=== PATIENT | female | born 1950 | race Caucasian/White ===

== ENCOUNTER → 2017-03-09 | Outpatient (CLI) | payer OTHER | END | disposition home or self-care (01) | LOC: RAH 13:16 | PROVIDERS: ATTEND Physical Medicine & Rehabilitation | DX: M25.571 Pain in right ankle and joints of right foot (principal) | CPT/HCPCS: 73600 ==

== ENCOUNTER → 2018-05-26 | Outpatient (CLI) | payer OTHER ==
[~2018-05-26] VITALS: Ht 157.5 cm; Wt 74.4 kg
[~2018-05-26] MED LIST: REGADENOSON 0.4 MG/5 ML PF SYG IVP SCH
== END | disposition home or self-care (01) ==
LOC: SHCH 10:03
PROVIDERS: ATTEND Internal Medicine Cardiovascular Disease
DX: I25.2 Old myocardial infarction (principal); I10 Essential (primary) hypertension; J44.9 Chronic obstructive pulmonary disease, unspecified
CPT/HCPCS: 78452; 93017; 96374; A9500 ×2; J2785

== ENCOUNTER → 2018-05-27 | Outpatient (CLI) | payer OTHER ==
[~2018-05-27] MED LIST changes: +AMLO10TA7 PO; +CHOL200013 PO; +ESCI20TA PO; +FLUT1BLS IH; +GABA-531 PO; +IBUP-2076 PO; +METO25TA6 PO; +OMEP20CA10 PO; -REGADENOSON 0.4 MG/5 ML PF SYG IVP SCH
== END | disposition home or self-care (01) ==
LOC: SHCH 08:46
PROVIDERS: ATTEND Internal Medicine Cardiovascular Disease
DX: I08.0 Rheumatic disorders of both mitral and aortic valves (principal); I10 Essential (primary) hypertension
CPT/HCPCS: 93306

== ENCOUNTER 2018-06-16 06:52 | Day surgery (SDC) | payer OTHER ==
[2018-06-14 13:01] VITALS: BP 150/72
[2018-06-14 13:04] LABS: APPEARANCE,URINE Clear (CLEAR); BILIRUBIN,URINE Negative (NEGATIVE); COLOR,URINE Yellow (YELLOW); GLUCOSE, URINE (UA) Negative (NEGATIVE); KETONES,URINE Negative (NEGATIVE); LEUKOCYTE ESTERASE ,URINE Trace (NEGATIVE); NITRATE,URINE Negative (NEGATIVE); OCCULT BLOOD,URINE Negative (NEGATIVE); PROTEIN,URINE Negative (NEGATIVE)
[2018-06-14 13:05] LABS: BASOPHILS % (AUTO) 0.1 % (0.0-5.0); HEMATOCRIT 42.4 % (36-48); LYMPHOCYTES % (AUTO) 31.7 % (21.0-51.0); MEAN CORPUSCULAR HEMOGLOBIN 31.4 pg (27.0-33.0); MEAN CORPUSCULAR HGB CONC 33.5 g/dL (32.0-36.0); MEAN CORPUSCULAR VOLUME 93.7 fL (79-99); MONOCYTES % (AUTO) 7.9 % (3.0-13.0); NEUTROPHILS % (AUTO) 58.3 % (40.0-77.0); PLATELET COUNT (AUTO) 213 K/uL (130-400); RED BLOOD CELL COUNT(AUTO) 4.53 MIL/uL (4.00-5.50); RED CELL DISTRIBUTION WIDTH 13.3 % (11.0-15.5); WHITE BLOOD COUNT (AUTO) 8.4 K/uL (4.8-10.8)
[2018-06-14 13:13] LABS: CREATININE 0.6 mg/dL (0.5-1.5); POTASSIUM 4.3 mmol/L (3.5-5.1)
[2018-06-14 13:14] LABS: BACTERIA,URINE Few /HPF (None Seen); MUCUS,URINE Few LPF (None Seen); RBC,URINE None Seen /HPF (0-1); SQUAMOUS EPITHELIAL CELL,UR Few /HPF (0-2); WBC,URINE 0-1 /HPF (0-1)
[2018-06-14 13:15] LABS: INR 0.98 (0.85-1.15); PARTIAL THROMBOPLASTIN TIME 28.7 SEC (26.3-35.5); PROTHROMBIN TIME 10.3 SEC (9.6-11.6)
--- NOTE | 2018-06-15 14:51 | NUR ---
REPORTED UA , FEW BACTERIA, FEW SQUAM EPI, AND FEW MUCUS. NO NEW ORDERS.
[~2018-06-16] VITALS: Ht 157.5 cm; Wt 79.7 kg
[2018-06-16] VITALS (21 sets, daily range): BP systolic 119–153; BP diastolic 34–71
[2018-06-16] MEDS ORDERED: SODIUM CHLORIDE 0.9% 1000ML 1,000 ML IV SCH (08:00)
[2018-06-16] MEDS ORDERED: LIDOCAINE HCL 2% 20ML ONE (08:24)
[2018-06-16] MEDS ORDERED: HEPARIN SODIUM 1000UNIT/ML 10ML VIAL ONE (08:24)
[2018-06-16] MEDS ORDERED: IOHEXOL 350 MG/ML 100ML INFUS..BTL IV ONE (08:24)
[2018-06-16] MEDS ORDERED: IOHEXOL-350 50ML VIAL IV ONE (08:24)
--- NOTE | 2018-06-16 08:25 | NUR ---
TO DIRECTOR OF DIAGNOSTIC IMAGING PT TAKEN TO DIRECTOR OF DIAGNOSTIC IMAGING VIA BED BY COLETTE FERRER. PT STABLE.
[2018-06-16] MEDS ORDERED: ATROPINE SULFATE 0.1 MG/ML 10 ML SYG IVP ONE (09:11)
[2018-06-16] MEDS ORDERED: SODIUM CHLORIDE 0.9% 10 ML VIAL IVP SCH (09:15)
--- NOTE | 2018-06-16 09:20 | NUR ---
RECEIVE PT RECEIVED FROM [employer] VIA BED AWAKE ALERT ORIENTED X3. STABLE. NOT IN ANY APPARENT DISTRESS. CATH SITE TO RIGHT GROIN SOFT, DRESSING DRY AND INTACT, NO OOZING NO HEMATOMA NOTED. INSTRUCTED TO KEEP RIGHT LEG STRAIGHT AND NOT TO ELEVATE HEAD. VERBALIZED UNDERSTANDING.
--- NOTE | 2018-06-16 16:15 | NUR ---
ACTIVITY PT ASSISTED TO BATHROOM, AMBULATED WITHOUT ANY PROBLEMS, VOIDED X1. CATH SITE REMAINS SOFT, NO OOZING NO HEMATOMA NOTED. DRESSING DRY AND CLEAN.
== END 2018-06-16 16:30 | disposition home or self-care (01) ==
LOC: DAH 06:52
PROVIDERS: ATTEND Internal Medicine Cardiovascular Disease
DX: I20.9 Angina pectoris, unspecified (principal); Z79.01 Long term (current) use of anticoagulants
CPT/HCPCS: 36415; 71045; 80048; 81001; 85025; 85610; 85730; 93005; 93458; C1894; J1644 ×2; J3490; J7030; Q9965; Q9967 ×2; J0461

== ENCOUNTER 2018-08-19 10:30 | Inpatient (IN) | payer OTHER ==
[~2018-08-19] VITALS: Ht 157.5 cm; Wt 83.5 kg
[~2018-08-19 10:30] MED LIST changes: -FLUT1BLS IH; +OMEP-50 PO; -OMEP20CA10 PO
[2018-08-19 11:16] LABS: BASOPHILS % (AUTO) 0.8 % (0.0-5.0); EOSINOPHILS % (AUTO) 4.2 % (0.0-8.0); HEMATOCRIT 38.8 % (36-48); LYMPHOCYTES % (AUTO) 31.9 % (21.0-51.0); MEAN CORPUSCULAR HEMOGLOBIN 31.9 pg (27.0-33.0); MEAN CORPUSCULAR HGB CONC 34.1 g/dL (32.0-36.0); MEAN CORPUSCULAR VOLUME 93.6 fL (79-99); MONOCYTES % (AUTO) 6.9 % (3.0-13.0); NEUTROPHILS % (AUTO) 56.2 % (40.0-77.0); PLATELET COUNT (AUTO) 190 K/uL (130-400); RED BLOOD CELL COUNT(AUTO) 4.14 MIL/uL (4.00-5.50); RED CELL DISTRIBUTION WIDTH 13.1 % (11.0-15.5); WHITE BLOOD COUNT (AUTO) 7.6 K/uL (4.8-10.8)
[2018-08-19 11:25] LABS: CREATININE 0.7 mg/dL (0.5-1.5); POTASSIUM 3.9 mmol/L (3.5-5.1)
[2018-08-19 11:42] LABS: INR 0.98 (0.85-1.15); PROTHROMBIN TIME 10.3 SEC (9.6-11.6)
[2018-08-19 11:52] VITALS: BP 133/68
[2018-08-19] MEDS ORDERED: HYDR12.54 PO (13:07)
[2018-08-19] MEDS ORDERED: TIZA2TAB5 PO (13:07)
[2018-08-19] MEDS ORDERED: FLUT15.88 NS (13:07)
[2018-08-19] MEDS ORDERED: LACTATED RINGERS 1000ML 1,000 ML IV SCH (13:30)
[2018-08-19] MEDS ORDERED: CEFAZOLIN SODIUM 1 GM VIAL IVP SCH (13:30)
[2018-08-25] VITALS (24 sets, daily range): BP systolic 118–153; BP diastolic 48–66
[2018-08-25] MEDS ORDERED: TRANEXAMIC ACID 1000MG/10ML IV ONE (08:37)
[2018-08-25] MEDS ORDERED: VANCOMYCIN HCL 1 GM VIAL ONE (08:37)
[2018-08-25] MEDS ORDERED: PROPOFOL 10 MG/ML 20ML VIAL IV ONE (08:41)
[2018-08-25] MEDS ORDERED: LIDOCAINE PF 2% 5ML ABBOJECT ONE ×2 (08:41→10:58)
[2018-08-25] MEDS ORDERED: ROPIVACAINE 0.5% 5MG/ML 30ML IJ ONE ×2 (08:41→08:47)
[2018-08-25] MEDS ORDERED: ROCURONIUM 10MG/1ML SYR 10 MG/ML ML ONE (08:41)
[2018-08-25] MEDS ORDERED: MIDAZOLAM HCL 1 MG/ML 2ML VIAL ONE (08:41)
[2018-08-25] MEDS ORDERED: FENTANYL CITRATE PF 50 MCG/1 ML 2ML VIAL ONE (08:43)
--- NOTE | 2018-08-25 08:45 | NUR ---
PREP surgical area prepped with 2% chlorhexidine gluconate cloth x2 by Radha Alfonso CNA Addendum: 08/25/18 at 1015 by KASIA KEENE RN RN Amended: Links added.
--- NOTE | 2018-08-25 08:45 | NUR ---
PREPPED EACH NOSTRIL WITH BETADINE SWAB STICKS X2 Addendum: 08/25/18 at 1017 by KASIA KEENE RN RN Amended: Links added.
[2018-08-25] MEDS: CEFAZOLIN SODIUM 1 GM VIAL ONE ×2 (09:35→10:18)
[2018-08-25] MEDS ORDERED: NEOSTIGMINE 5MG/5ML SYR IV ONE (10:48)
[2018-08-25] MEDS ORDERED: GLYCOPYRROLATE 1 MG/5 ML SYRINGE ONE (10:48)
[2018-08-25] MEDS ORDERED: KETOROLAC TROMETHAMINE 30MG/ML ONE ×2 (10:50→12:02)
[2018-08-25] MEDS ORDERED: ONDANSETRON HCL 4 MG/2 ML VIAL ONE (10:51)
[2018-08-25] MEDS: ACETAMINOPHEN EXTRA STRENGTH 500 MG TABLET PO SCH ×2 (11:15→19:28)
[2018-08-25] MEDS ORDERED: OXYCODONE HCL 5 MG TAB PO PRN (11:15)
[2018-08-25] MEDS ORDERED: ONDANSETRON HCL 4 MG/2 ML VIAL IVP PRN (11:15)
[2018-08-25] MEDS ORDERED: TIZANIDINE HCL 2 MG TABLET PO PRN (11:15)
[2018-08-25] MEDS ORDERED: TRAMADOL HCL 50 MG TABLET PO PRN (11:15)
[2018-08-25] MEDS ORDERED: MEPERIDINE-PF 25 MG/ML SYG ONE ×3 (11:34→12:17)
[2018-08-25] MEDS ORDERED: CEFAZOLIN SODIUM 1 GM VIAL ONE (15:17)
--- NOTE | 2018-08-25 15:18 | NUR ---
DCP CM met with pt discussed dc plans. Pt is independent prior to surgery, lives at home with spouse. Pt has a cane, walker, bedside commode. Denies any other equipments/services. Pt feels safe to go back home, spouse able to assist with transportation and needs as necessary. Pt stated Dr Eduardo's office is arranging PT at home. DC plan to home. CM to cont to follow up. Addendum: 08/25/18 at 1520 by ZAIRA MEJIA LVN CM Amended: Links added.
[2018-08-25] MEDS: CEFAZOLIN SODIUM 1 GM VIAL IVP SCH ×2 (15:24→23:51)
[2018-08-25] MEDS ORDERED: GABAPENTIN 300 MG CAPSULE ONE (19:22)
[2018-08-25] MEDS ORDERED: FAMOTIDINE 20MG TAB 20 MG TAB ONE (19:22)
[2018-08-25] MEDS ORDERED: ASPIRIN 81 MG EC TAB ONE (19:22)
[2018-08-25] MEDS: ASPIRIN 81 MG EC TAB PO SCH (19:27)
[2018-08-25] MEDS: FAMOTIDINE 20MG TAB 20 MG TAB PO SCH (19:27)
[2018-08-25] MEDS: GABAPENTIN 300 MG CAPSULE PO SCH (19:29)
[2018-08-25] MEDS: SODIUM CHLORIDE 0.9% 1000ML 1,000 ML IV SCH ×2 (19:34→21:10)
[2018-08-25] MEDS: OXYCODONE HCL 5 MG TAB PO PRN ×2 (19:37→23:51)
--- NOTE | 2018-08-25 23:52 | NUR ---
NO VOID PATIENT UNABLE TO VOID BLADDER SCAN SHOWED 800ML. PATIENT THEN STRAIGHT CATHETERIZED AND 1000ML OF CLEAR YELLOW URINE REMOVED. WILL MONITOR FOR VOID.
[2018-08-26] MEDS: ACETAMINOPHEN EXTRA STRENGTH 500 MG TABLET PO SCH ×3 (03:01→18:49)
[2018-08-26] MEDS: OXYCODONE HCL 5 MG TAB PO PRN ×3 (03:57→18:51)
[2018-08-26 04:05] VITALS: BP 121/54
[2018-08-26 04:16] LABS: HEMATOCRIT 32.8 % (36-48); MEAN CORPUSCULAR HEMOGLOBIN 31.8 pg (27.0-33.0); MEAN CORPUSCULAR HGB CONC 33.8 g/dL (32.0-36.0); MEAN CORPUSCULAR VOLUME 94.1 fL (79-99); PLATELET COUNT (AUTO) 155 K/uL (130-400); RED BLOOD CELL COUNT(AUTO) 3.49 MIL/uL (4.00-5.50); RED CELL DISTRIBUTION WIDTH 13.1 % (11.0-15.5); WHITE BLOOD COUNT (AUTO) 9.9 K/uL (4.8-10.8)
[2018-08-26 04:34] LABS: CREATININE 0.7 mg/dL (0.5-1.5); POTASSIUM 3.7 mmol/L (3.5-5.1)
[2018-08-26] MEDS: SODIUM CHLORIDE 0.9% 1000ML 1,000 ML IV SCH (06:19)
[2018-08-26 08:04] VITALS: BP 124/49
[2018-08-26] MEDS: CITALOPRAM 20 MG TABLET PO SCH (09:00)
[2018-08-26] MEDS: **HM** VIT D3 2000 UNITS PO SCH (09:00)
[2018-08-26] MEDS: ASPIRIN 81 MG EC TAB PO SCH ×2 (09:37→19:59)
[2018-08-26] MEDS: CELECOXIB 200 MG CAP PO SCH (09:37)
[2018-08-26] MEDS: POLYETHYLENE GLYCOL 3350 17 GM POWD.PACK PO SCH (09:37)
[2018-08-26] MEDS: METOPROLOL TARTRATE 25 MG TAB PO SCH (09:38)
[2018-08-26] MEDS: HYDROCHLOROTHIAZIDE 25 MG TABLET PO SCH (09:38)
[2018-08-26] MEDS: AMLODIPINE BESYLATE 5 MG TAB PO SCH (09:38)
[2018-08-26] MEDS: GABAPENTIN 300 MG CAPSULE PO SCH ×2 (09:39→19:59)
[2018-08-26] MEDS: FAMOTIDINE 20MG TAB 20 MG TAB PO SCH ×2 (09:39→19:59)
[2018-08-26 10:59] VITALS: BP 159/66
[2018-08-26] MEDS ORDERED: MORPHINE SULFATE 4 MG/1ML SYG IV PRN (11:30)
[2018-08-26] MEDS ORDERED: KETOROLAC TROMETHAMINE 15MG/ML IV PRN (11:30)
--- NOTE | 2018-08-26 12:56 | NUR ---
CM Note: [facility] pending ins auth CM met with pt discussed MD recommendation for short term placement rehab, pt agreeable, JEFFREY signed for [facility]. Faxed order, clinicals, and pasrr. Spoke to [facility], will come eval pt. Pt pending ins auth. EMS semi-fillled pending to be faxed w/current date, primary nurse to call [facility] once pt ready to DC. Primary nurse aware. CM to cont to follow up.
[2018-08-26 15:55] VITALS: BP 137/55
[2018-08-26 19:46] VITALS: BP 126/53
[2018-08-27] VITALS: BP 127/53
[2018-08-27 04:00] VITALS: BP 135/54
[2018-08-27] MEDS: ACETAMINOPHEN EXTRA STRENGTH 500 MG TABLET PO SCH ×2 (06:22→12:17)
[2018-08-27 07:44] VITALS: BP 138/59
[2018-08-27] MEDS: **HM** VIT D3 2000 UNITS PO SCH (08:11)
[2018-08-27] MEDS: CITALOPRAM 20 MG TABLET PO SCH (08:11)
[2018-08-27] MEDS: AMLODIPINE BESYLATE 5 MG TAB PO SCH (08:18)
[2018-08-27] MEDS: CELECOXIB 200 MG CAP PO SCH (08:18)
[2018-08-27] MEDS: HYDROCHLOROTHIAZIDE 25 MG TABLET PO SCH (08:18)
[2018-08-27] MEDS: METOPROLOL TARTRATE 25 MG TAB PO SCH (08:18)
[2018-08-27] MEDS: GABAPENTIN 300 MG CAPSULE PO SCH (08:18)
[2018-08-27] MEDS: ASPIRIN 81 MG EC TAB PO SCH (08:18)
[2018-08-27] MEDS: POLYETHYLENE GLYCOL 3350 17 GM POWD.PACK PO SCH (08:18)
[2018-08-27] MEDS: FAMOTIDINE 20MG TAB 20 MG TAB PO SCH (08:19)
--- NOTE | 2018-08-27 08:30 | NUR ---
Left hip incision dressing changed. Skin edges intact, surgical glue intact. No active drainage. Painted with Betadine and dressed with sterile 4x4 and Medipore tape per md orders.
[2018-08-27 10:56] VITALS: BP 116/57
--- NOTE | 2018-08-27 12:00 | NUR ---
cm note call made to [facility] and spoke to celia at [facility], states pt has been approved, updated primary md dr Eduardo here and states will input dc orders. spoke to pt and states can go via van transport. and also per ok to go via van transport to [facility].
--- NOTE | 2018-08-27 15:59 | NUR ---
Discharge instructions given in the room with pt. Emphasis on dx, activity/physical therapy, incision care, and s/s to monitor for, including when to seek emergency care vs dial 911. Unable to schedule follow up appt with Dr Eduardo as office is closed for the weekend, instructed pt that she must call the schedule appt to be seen in 2 weeks. PIV removed, tip intact. Dressed with sterile 2x2 and band aid after hemostasis. Report given to Armaan Ghosh. Pt transferred to their facility via EMS. Pt in stable condition at time of discharge.
[2018-08-28] MEDS ORDERED: BISACODYL 10 MG SUPP.RECT RC PRN (11:15)
== END 2018-08-27 15:54 | DRG 470 ==
LOC: DAHIP 08-25 07:53 → EDSTATUS 08-25 10:30 → 4AH 08-25 12:52
PROVIDERS: ADMIT Orthopaedic Surgery; ATTEND Orthopaedic Surgery
PROC: 0SRB03Z Replacement of Left Hip Joint with Ceramic Synthetic Substitute, Open Approach (ICD-10-PCS; principal; 2018-08-25 09:09)
DX: M16.12 Unilateral primary osteoarthritis, left hip (principal); E66.9 Obesity, unspecified; M21.70 Unequal limb length (acquired), unspecified site; Z68.33 Body mass index [BMI] 33.0-33.9, adult; Z88.8 Allergy status to other drugs, medicaments and biological substances
CPT/HCPCS: 36415; 73503; 80048; 85025; 85027; 85610; 85730; 87641; 97039; A4606; G0378; J0690; J1885; J2001; J2175; J2250; J2405; J2704; J2710; J2795; J3010; J3370; J3490; J7030; J7120

== ENCOUNTER → 2024-06-02 | Outpatient (CLI) | payer OTHER ==
[~2024-06-02] MED LIST changes: +AMLO-258 PO; -AMLO10TA7 PO; +FLUT15.845 NS; +HYDR12.54 PO; -OMEP-50 PO; +OMEP20CA12 PO; +TIZA-194 PO
== END | disposition home or self-care (01) ==
LOC: SHCH 09:22
PROVIDERS: ATTEND Internal Medicine Cardiovascular Disease
DX: I87.1 Compression of vein (principal); I87.8 Other specified disorders of veins; I87.2 Venous insufficiency (chronic) (peripheral)
CPT/HCPCS: 93970